=== PATIENT | male | born 1995 | race Two or more races ===

== ENCOUNTER 2020-01-20 16:02 | Emergency (ER) | payer SELFPAY ==
[2020-01-20 16:13] VITALS: BP 101/64; PULSE 96
[2020-01-20] MEDS ORDERED: methylPREDNISolone Sodium Succinate 125 MG/2 ML SDV IM ONE (16:35)
--- NOTE | 2020-01-20 17:11 | CR ---
PROCEDURE INFORMATION: Exam: XR Lumbosacral Spine, 2 or 3 Views Exam date and time: 01/20/2020 4:57 PM Age: 24 years old Clinical indication: Other: Pain, no known trauma--unable to lay down; Additional info: Low back pain TECHNIQUE: Imaging protocol: XR of the lumbosacral spine, 2 or 3 views. COMPARISON: No relevant prior studies available. FINDINGS: Vertebrae: All spinal elements are developmentally normal and intact. Normal alignment. No degenerative spurring or stenosis. Soft tissues: Normal. Gastrointestinal tract: There is an over abundance of mottled soft tissue density stool in the region of the cecum and proximal ascending colon, seen throughout the distal transverse colon and left colon in smaller amounts. There is desiccated stool the level of the rectum. IMPRESSION: 1. Normal lumbar spine. 2. Moderate to severe constipation.
--- NOTE | 2020-01-20 18:10 | EDM.PDOC ---
Scribed by María Elena Aaron 01/20/20 2955 for Mirtha Smith MD ED HPI GENERAL MEDICAL PROBLEM - General Chief Complaint: Back Pain or Injury Stated Complaint: SEVERE LOWER BACK PAIN, UNABLE TO WALK Time Seen by Provider: 01/20/20 16:28 Source of Information: Reports: Patient, RN, RN Notes Reviewed History Limitations: Reports: No Limitations - History of Present Illness INITIAL COMMENTS - FREE TEXT/NARRATIVE: Patient presents to ED with lower back pain that started a week and half ago. It is worse when he is walking. No known injury. It has been getting worse and keeping him up at night. No numbness or tingling in his legs. Onset: Gradual Duration: Getting Worse Location: Reports: Back Quality: Reports: Ache Severity: Severe Improves with: Reports: None Worsens with: Reports: None Associated Symptoms: Reports: No Other Symptoms - Related Data Allergies Allergy/AdvReac Type Severity Reaction Status Date / Time venom-honey bee Allergy Anaphylactic Verified 05/06/14 15:20 [bee venom (honey bee)] Shock Home Meds: Home Meds Hydrocodone/Acetaminophen [Hydrocodon-Acetaminophn 10-325] 1 tab PO Q4H PRN 05/22/14 [History] Past Medical History - Past Health History Medical/Surgical History: Denies Medical/Surgical History Social & Family History - Living Situation & Occupation Living situation: Reports: with Family Occupation: Employed ED ROS GENERAL - Review of Systems Review Of Systems: Comprehensive ROS is negative, except as noted in HPI. ED EXAM,LOWER BACK PAIN/INJURY - Physical Exam Exam: See Below Exam Limited By: No Limitations General Appearance: Alert, WD/WN, No Apparent Distress Eye Exam: Bilateral Eye: EOMI, Normal Inspection, PERRL Ears: Normal External Exam, Normal Canal, Hearing Grossly Normal, Normal TMs Nose: Normal Inspection, Normal Mucosa, No Blood Throat/Mouth: Normal Inspection, Normal Lips, Normal Teeth, Normal Gums, Normal Oropharynx, Normal Voice, No Airway Compromise Head: Atraumatic, Normocephalic Neck: Normal Inspection, Supple, Non-Tender, Full Range of Motion Respiratory/Chest: No Respiratory Distress, Lungs Clear, Normal Breath Sounds, No Accessory Muscle Use, Chest Non-Tender Cardiovascular: Normal Peripheral Pulses, Regular Rate, Rhythm, No Edema, No Gallop, No JVD, No Murmur, No Rub GI/Abdominal: Normal Bowel Sounds, Soft, Non-Tender, No Organomegaly, No Distention, No Abnormal Bruit, No Mass (Male) Exam: Deferred Rectal (Males) Exam: Deferred Extremities: Normal Inspection, Normal Range of Motion, Non-Tender, No Pedal Edema, Normal Capillary Refill Neurological: Alert, Normal Mood/Affect, Normal Dorsiflexion, CN II-XII Intact, Normal Plantar Flexion, Normal Gait, Normal Reflexes, No Motor/Sensory Deficits, Oriented x 3 Psychiatric: Normal Affect, Normal Mood Skin Exam: Warm, Dry, Intact, Normal Color, No Rash Lymphatic: No Adenopathy Course - Vital Signs Last Recorded V/S: Last Vital Signs Temp 98 F 01/20/20 16:12 Pulse 96 01/20/20 16:12 Resp 20 01/20/20 16:12 BP 101/64 01/20/20 16:12 Pulse Ox 98 01/20/20 16:12 - Orders/Labs/Meds Meds: Medications Discontinued Medications Generic Name Dose Route Start Last Admin Trade Name Jasmin PRN Reason Stop Dose Admin Methylprednisolone Sodium Succinate 125 mg 01/20/20 16:35 01/20/20 16:56 Solu-Medrol IM 01/20/20 16:36 125 mg ONETIME ONE Administration Departure - Departure Time of Disposition: 18:02 Disposition: Home, Self-Care 01 Condition: Good Clinical Impression: SI (sacroiliac) joint inflammation Constipation Qualifiers: Constipation type: unspecified constipation type Qualified Code(s): K59.00 - Constipation, unspecified - Discharge Information *PRESCRIPTION DRUG MONITORING PROGRAM REVIEWED*: No *COPY OF PRESCRIPTION DRUG MONITORING REPORT IN PATIENT ROJAS: No Instructions: Constipation, Adult, Mvmv-el-Roof, Sacroiliac Joint Dysfunction Forms: ED Department Discharge Additional Instructions: RX: Prednisone 20mg. Go to [facility] and get Miralax or any laxative or stool softener. Follow up with your clinic provider if not improved in 3-5 days. Sepsis Event Note (ED) - Evaluation Sepsis Screening Result: No Definite Risk - Focused Exam Vital Signs: Vital Signs Temp Pulse Resp BP Pulse Ox 01/20/20 16:12 98 F 96 20 101/64 98 - Assessment/Plan Assessment:: 24 yo with low back pain for 1.5 weeks Plan: reviewed ways to resolve/prevent constipation steroid burst for SI inflammation reviewed reasons to call/return to the ER fu with PCP in 3-5 days I have read and agree with the documentation that has been completed regarding this visit. By signing this record, I attest that the documentation was completed in my physical presence and is an accurate record of the encounter.
== END 2020-01-20 18:24 | disposition home or self-care (01) ==
LOC: DL.ED 16:02
DX: M46.1 Sacroiliitis, not elsewhere classified (principal); K59.00 Constipation, unspecified; Z91.030 Bee allergy status
CPT/HCPCS: 72100; 96372; 99283; J2930

== ENCOUNTER 2020-02-04 22:43 | Emergency (ER) | payer SELFPAY ==
[2020-02-04 23:15] VITALS: BP 124/52; PULSE 103
--- NOTE | 2020-02-04 23:34 | CR ---
PROCEDURE INFORMATION: Exam: XR Left Knee Exam date and time: 02/04/2020 11:13 PM Age: 24 years old Clinical indication: Other: Pain; Additional info: Pain swelling, no injury TECHNIQUE: Imaging protocol: XR Left knee. Views: 1 or 2 views. COMPARISON: No relevant prior studies available. FINDINGS: Bones/joints: Moderate knee joint effusion.There is no evidence of acute fracture. There is no evidence of joint malalignment or dislocation. Soft tissues: No acute soft tissue abnormalities are identified. IMPRESSION: Moderate knee joint effusion
--- NOTE | 2020-02-04 23:35 | CR ---
PROCEDURE INFORMATION: Exam: XR Chest, 2 Views Exam date and time: 02/04/2020 11:09 PM Age: 24 years old Clinical indication: Other: Chest pain; Additional info: Left anterior cp, worse with breathing TECHNIQUE: Imaging protocol: XR of the chest Views: 2 views. COMPARISON: No relevant prior studies available. FINDINGS: Lungs: Unremarkable. No consolidation. Pleural space: Unremarkable. No pleural effusion. No pneumothorax. Heart/Mediastinum: Unremarkable. No cardiomegaly. Bones/joints: Unremarkable. IMPRESSION: No acute findings.
[2020-02-04 23:56] LABS: ANION GAP 12.8 mEq/L (7-13); CHLORIDE,CL 102 mmol/L (98-107); SODIUM,NA 139 mmol/L (136-145)
[2020-02-05] MEDS ORDERED: Azithromycin 250 MG Tab PO ONE (00:01)
[2020-02-05] MEDS ORDERED: cefTRIAXone 1 GM, Lidocaine 1% 2.1 ML IM ONE ×2 (00:01)
--- NOTE | 2020-02-05 01:01 | EDM.PDOC ---
ED HPI GENERAL MEDICAL PROBLEM - General Chief Complaint: Respiratory Problem Stated Complaint: CHEST PAIN/TIGHT, HURTS TO BREATH,SOB Time Seen by Provider: 02/04/20 23:00 Source of Information: Reports: Patient History Limitations: Reports: No Limitations - History of Present Illness INITIAL COMMENTS - FREE TEXT/NARRATIVE: ED with c/o pain with breathing left anterior chest and in back with deep breathing,pain and swelling to left knee. Better tonight than yesterday. Denies injury. No fever or chills. No cough. Treatments [employer]: Reports: NSAIDS Anterior Chest Pain Score (Numeric/FACES): 6 - Related Data Allergies Allergy/AdvReac Type Severity Reaction Status Date / Time venom-honey bee Allergy Anaphylactic Verified 02/04/20 23:17 [bee venom (honey bee)] Shock Home Meds: Home Meds Naproxen 1 tab PO BID 02/04/20 [History] Past Medical History - Past Health History Medical/Surgical History: Denies Medical/Surgical History Genitourinary History: Reports: UTI, Recurrent Psychiatric History: Reports: Anxiety, Panic Attack - Past Surgical History GI Surgical History: Reports: Appendectomy Social & Family History - Family History Family Medical History: Noncontributory - Tobacco Use Smoking Status *Q: Current Every Day Smoker Years of Tobacco use: 4 Packs/Tins Daily: 0.1 - Caffeine Use Caffeine Use: Reports: None - Recreational Drug Use Recreational Drug Use: Yes Drug Use in Last 12 Months: No Recreational Drug Type: Reports: Marijuana/Hashish Other Recreational Drug Type: States he tried to smoke wed for his knee. Recreational Drug Use Frequency: Weekly - Living Situation & Occupation Living situation: Reports: with Family Occupation: Employed ED ROS GENERAL - Review of Systems Review Of Systems: Comprehensive ROS is negative, except as noted in HPI. ED EXAM, GENERAL - Physical Exam Exam: See Below Exam Limited By: No Limitations General Appearance: Alert, Mild Distress Eye Exam: Bilateral Eye: Conjunctival Injection, EOMI, PERRL Ears: Normal External Exam, Hearing Grossly Normal Nose: Normal Inspection Throat/Mouth: Normal Inspection Head: Atraumatic, Normocephalic Neck: Normal Inspection, Full Range of Motion Respiratory/Chest: No Respiratory Distress, Lungs Clear, Normal Breath Sounds, Other (left anterior chest tenderness with palpation reporoducing pain experienced with inspiration) Cardiovascular: Normal Peripheral Pulses, Regular Rate, Rhythm, No Murmur GI/Abdominal: Normal Bowel Sounds, Soft, Non-Tender Back Exam: Normal Inspection, Full Range of Motion Extremities: Normal Inspection, Normal Range of Motion, Joint Swelling (left knee). No: Increased Warmth Neurological: Alert, Oriented, Normal Cognition Psychiatric: Normal Affect, Normal Mood Skin Exam: Warm, Dry, Intact, Normal Color Course - Vital Signs Last Recorded V/S: Last Vital Signs Temp 98.6 F 02/04/20 23:00 Pulse 103 H 02/04/20 23:00 Resp 20 02/04/20 23:00 BP 124/52 L 02/04/20 23:00 Pulse Ox 97 02/04/20 23:00 - Orders/Labs/Meds Orders: Active Orders 24 hr Category Date Time Status CHLAMYDIA AND GONORRHEA BY [facility] Urgent Lab 02/05/20 23:34 Received CULTURE URINE [RM] Stat Lab 02/04/20 23:34 Received Labs: Laboratory Tests 02/04/20 02/04/20 02/04/20 Range/Units 23:32 23:32 23:34 WBC 12.1 H (5.0-10.0) 10^3/uL RBC 4.07 L (4.6-6.2) 10^6/uL Hgb 11.7 L D (14.0-18.0) g/dL Hct 35.8 L (40.0-54.0) % MCV 88.0 (80-100) fL MCH 28.7 (27.0-34.0) pg MCHC 32.7 L (33.0-35.0) g/dL Plt Count 381 (150-450) 10^3/uL Neut % (Auto) 75.9 H (42.2-75.2) % Lymph % (Auto) 10.3 L (20.5-50.1) % White % (Auto) 9.8 H (2-8) % Eos % (Auto) 3.8 H (1.0-3.0) % Baso % (Auto) 0.2 (0.0-1.0) % Sodium 139 (136-145) mmol/L Potassium 3.8 (3.5-5.1) mmol/L Chloride 102 (98-107) mmol/L Carbon Dioxide 28 (21-32) mmol/L Anion Gap 12.8 (7-13) mEq/L BUN 15 (7-18) mg/dL Creatinine 1.01 (0.70-1.30) mg/dL Est Cr Clr Drug Dosing 92.81 mL/min Estimated GFR (MDRD) > 60 BUN/Creatinine Ratio 14.9 (No establ ref range) Glucose 104 H (74-99) mg/dL Calcium 8.5 (8.5-10.1) mg/dL Total Bilirubin 0.3 (0.2-1.0) mg/dL AST 14 L (15-37) U/L ALT 22 (16-63) U/L Alkaline Phosphatase 75 (46-116) U/L C-Reactive Protein 13.4 H (0.0-0.9) mg/dL Total Protein 7.1 (6.4-8.2) g/dL Albumin 2.9 L (3.4-5.0) g/dL Globulin 4.2 Albumin/Globulin Ratio 0.69 Urine Color Yellow (YELLOW) Urine Appearance Slightly cloudy (CLEAR) Urine pH 7.0 (5.0-9.0) Ur Specific [place] 1.020 (1.005-1.030) Urine Protein Trace H (NEGATIVE) Urine Glucose (UA) Negative (NEGATIVE) Urine Ketones Negative (NEGATIVE) Urine Occult Blood Trace-intact H (NEGATIVE) Urine Nitrite Negative (NEGATIVE) Urine Bilirubin Negative (NEGATIVE) Urine Urobilinogen 1.0 (0.2-1.0) mg/dL Ur Leukocyte Esterase Moderate H (NEGATIVE) Urine RBC 0-5 /HPF Urine WBC 50-75 H (0-5/HPF) /HPF Ur Epithelial Cells Rare (NOT SEEN) /HPF Amorphous Sediment Few (NOT SEEN) /HPF Urine Bacteria Few (0-FEW/HPF) /HPF Urine Mucus Few H (NOT SEEN) /LPF Urine Opiates Screen (NEGATIVE) Ur Oxycodone Screen (NEGATIVE) Urine Methadone Screen (NEGATIVE) Ur Barbiturates Screen (NEGATIVE) U Tricyclic Antidepress (NEGATIVE) Ur Phencyclidine Scrn (NEGATIVE) Ur Amphetamine Screen (NEGATIVE) U Methamphetamines Scrn (NEGATIVE) Urine MDMA Screen (NEGATIVE) U Benzodiazepines Scrn (NEGATIVE) Urine Cocaine Screen (NEGATIVE) U Marijuana (THC) Screen (NEGATIVE) 02/04/20 Range/Units 23:34 WBC (5.0-10.0) 10^3/uL RBC (4.6-6.2) 10^6/uL Hgb (14.0-18.0) g/dL Hct (40.0-54.0) % MCV (80-100) fL MCH (27.0-34.0) pg MCHC (33.0-35.0) g/dL Plt Count (150-450) 10^3/uL Neut % (Auto) (42.2-75.2) % Lymph % (Auto) (20.5-50.1) % White % (Auto) (2-8) % Eos % (Auto) (1.0-3.0) % Baso % (Auto) (0.0-1.0) % Sodium (136-145) mmol/L Potassium (3.5-5.1) mmol/L Chloride (98-107) mmol/L Carbon Dioxide (21-32) mmol/L Anion Gap (7-13) mEq/L BUN (7-18) mg/dL Creatinine (0.70-1.30) mg/dL Est Cr Clr Drug Dosing mL/min Estimated GFR (MDRD) BUN/Creatinine Ratio (No establ ref range) Glucose (74-99) mg/dL Calcium (8.5-10.1) mg/dL Total Bilirubin (0.2-1.0) mg/dL AST (15-37) U/L ALT (16-63) U/L Alkaline Phosphatase (46-116) U/L C-Reactive Protein (0.0-0.9) mg/dL Total Protein (6.4-8.2) g/dL Albumin (3.4-5.0) g/dL Globulin Albumin/Globulin Ratio Urine Color (YELLOW) Urine Appearance (CLEAR) Urine pH (5.0-9.0) Ur Specific [place] (1.005-1.030) Urine Protein (NEGATIVE) Urine Glucose (UA) (NEGATIVE) Urine Ketones (NEGATIVE) Urine Occult Blood (NEGATIVE) Urine Nitrite (NEGATIVE) Urine Bilirubin (NEGATIVE) Urine Urobilinogen (0.2-1.0) mg/dL Ur Leukocyte Esterase (NEGATIVE) Urine RBC /HPF Urine WBC (0-5/HPF) /HPF Ur Epithelial Cells (NOT SEEN) /HPF Amorphous Sediment (NOT SEEN) /HPF Urine Bacteria (0-FEW/HPF) /HPF Urine Mucus (NOT SEEN) /LPF Urine Opiates Screen Negative (NEGATIVE) Ur Oxycodone Screen Negative (NEGATIVE) Urine Methadone Screen Negative (NEGATIVE) Ur Barbiturates Screen Negative (NEGATIVE) U Tricyclic Antidepress Negative (NEGATIVE) Ur Phencyclidine Scrn Negative (NEGATIVE) Ur Amphetamine Screen Positive H (NEGATIVE) U Methamphetamines Scrn Negative (NEGATIVE) Urine MDMA Screen Negative (NEGATIVE) U Benzodiazepines Scrn Negative (NEGATIVE) Urine Cocaine Screen Negative (NEGATIVE) U Marijuana (THC) Screen Positive H (NEGATIVE) Meds: Medications Discontinued Medications Generic Name Dose Route Start Last Admin Trade Name Freq PRN Reason Stop Dose Admin Azithromycin 1,000 mg 02/05/20 00:01 02/05/20 00:10 Zithromax PO 02/05/20 00:02 1,000 mg ONETIME ONE Administration Ceftriaxone Sodium 1 gm/ 0 gm 02/05/20 00:01 02/05/20 00:10 Lidocaine HCl 2.1 ml IM 02/05/20 00:02 2.1 inj ONETIME ONE Administration - Re-Assessments/Exams Free Text/Narrative Re-Assessment/Exam: admits some increased frequency and burining with urination last week none at pr esent. No hx STD. Departure - Departure Time of Disposition: 00:49 Disposition: Home, Self-Care 01 Condition: Good Clinical Impression: Knee effusion, left, Costochondral chest pain UTI (urinary tract infection) Qualifiers: Urinary tract infection type: acute cystitis Hematuria presence: without hematuria Qualified Code(s): N30.00 - Acute cystitis without hematuria - Discharge Information *PRESCRIPTION DRUG MONITORING PROGRAM REVIEWED*: No *COPY OF PRESCRIPTION DRUG MONITORING REPORT IN PATIENT ROJAS: No Instructions: Knee Effusion, [id number], Chest Wall Pain, [id number], Urinary Tract Infection, Adult, [id number] Referrals: PCP,None [Primary Care Provider] - Forms: ED Department Discharge Additional Instructions: increase fluids tylenol 650mg every 4 hours as needed for discomfort, alternating with ibuprofen 600mg clindamycin 300mg 3 times daily follow up in clinic early week for recheck ice to knee Sepsis Event Note (ED) - Evaluation Sepsis Screening Result: No Definite Risk - Focused Exam Vital Signs: Vital Signs Temp Pulse Resp BP Pulse Ox 02/04/20 23:00 98.6 F 103 H 20 124/52 L 97 - My Orders Last 24 Hours: My Active Orders 02/04/20 23:34 CULTURE URINE [RM] Stat 02/05/20 23:34 CHLAMYDIA AND GONORRHEA BY [facility] Urgent - Assessment/Plan Last 24 Hours: My Active Orders 02/04/20 23:34 CULTURE URINE [RM] Stat 02/05/20 23:34 CHLAMYDIA AND GONORRHEA BY [facility] Urgent
[2020-02-06 11:47] LABS: C.TRACHOMATIS BY TMA Negative (Negative); N.GONORRHOEAE BY TMA Positive (Negative)
== END 2020-02-05 01:00 | disposition home or self-care (01) ==
LOC: DL.ED 22:43
DX: R07.1 Chest pain on breathing (principal); M25.462 Effusion, left knee; N30.00 Acute cystitis without hematuria; F17.210 Nicotine dependence, cigarettes, uncomplicated; Z91.030 Bee allergy status
CPT/HCPCS: 36415; 71046; 73560; 80053; 80305; 81001; 85025; 86140; 87086; 87491; 87591; 96372; 99284; 99285; A9270; J0696; J2001

== ENCOUNTER 2020-09-10 14:38 | Emergency (ER) | payer SELFPAY ==
[2020-09-10 14:55] VITALS: BP 133/77; PULSE 98
[2020-09-10] MEDS ORDERED: Silver Sulfadiazine 1% Crm 50 GM Tube TOP ONE (15:35)
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
== END 2020-09-10 15:56 | disposition home or self-care (01) ==
LOC: DL.ED 14:38
DX: T65.891A Toxic effect of other specified substances, accidental (unintentional), initial encounter (principal); T25.512A Corrosion of first degree of left ankle, initial encounter; T25.511A Corrosion of first degree of right ankle, initial encounter; L03.116 Cellulitis of left lower limb; L03.115 Cellulitis of right lower limb; Z91.030 Bee allergy status; Z72.0 Tobacco use
CPT/HCPCS: 16020; 99283; 99283-25; A9270-GY

== ENCOUNTER 2020-10-06 13:20 | Emergency (ER) | payer MEDICAID, OTHER ==
[2020-10-06 13:51] VITALS: BP 119/76; PULSE 100
[2020-10-06 14:20] LABS: ANION GAP 14.2 mEq/L (7-13); CHLORIDE,CL 105 mmol/L (98-107); SODIUM,NA 142 mmol/L (136-145)
[2020-10-06 14:25] LABS: CORONAVIRUS COVID-19 NAA NEGATIVE (NEGATIVE)
--- NOTE | 2020-10-06 16:29 | CR ---
PROCEDURE INFORMATION: Exam: XR Chest Exam date and time: 10/06/2020 3:03 PM Age: 25 years old Clinical indication: Other: Right anterior chest pain TECHNIQUE: Imaging protocol: XR of the chest. Views: 2 views. COMPARISON: CR Chest 2V 02/04/2020 11:09 PM FINDINGS: Lungs: Unremarkable. No consolidation. Pleural spaces: Unremarkable. No pleural effusion. No pneumothorax. Heart/Mediastinum: Unremarkable. No cardiomegaly. Bones/joints: Unremarkable. IMPRESSION: No acute findings.
--- NOTE | 2020-10-06 16:38 | EDM.PDOC ---
Scribed by María Elena Aaron 10/06/20 0543 for Colleen Prather NP ED HPI GENERAL MEDICAL PROBLEM - General Chief Complaint: Respiratory Problem Stated Complaint: [id number] RIGHT LUNG PAIN Time Seen by Provider: 10/06/20 14:18 Source of Information: Reports: Patient, RN, RN Notes Reviewed - History of Present Illness INITIAL COMMENTS - FREE TEXT/NARRATIVE: Patient to ER with complaint of "lung pain". It began yesterday. States pain to the right lung anterior chest with movement, coughing, breathing and laughing. Denies having had COVID. He was last tested 1 month ago--negative at that time. No vaccinations. Patient unsure if he got them. He states he quit smoking x1 month ago and also quit marijuana 1 month ago. No cough, fever, chills, nausea, vomiting, and diarrhea. Denies any past medical hihstory. He had listed weights last night and stopped right away because of pain. He rates the pain 6/0 and sharp. Onset Date: 10/05/20 Duration: Getting Worse Location: Reports: Chest Quality: Reports: Ache Severity: Moderate Improves with: Reports: None Worsens with: Reports: None Right Chest Pain Score (Numeric/FACES): 4 - Related Data Allergies Allergy/AdvReac Type Severity Reaction Status Date / Time venom-honey bee Allergy Anaphylactic Verified 10/06/20 13:48 [bee venom (honey bee)] Shock Home Meds: Home Meds . [No Known Home Meds] 10/06/20 [History] Past Medical History - Past Health History Medical/Surgical History: Denies Medical/Surgical History HEENT History: Reports: None Cardiovascular History: Reports: None Respiratory History: Reports: None Genitourinary History: Reports: UTI, Recurrent Musculoskeletal History: Reports: None Neurological History: Reports: None Psychiatric History: Reports: Anxiety, Panic Attack Endocrine/Metabolic History: Reports: None Hematologic History: Reports: None Immunologic History: Reports: None Oncologic (Cancer) History: Reports: None Dermatologic History: Reports: None - Infectious Disease History Infectious Disease History: Reports: None - Past Surgical History Head Surgeries/Procedures: Reports: None GI Surgical History: Reports: Appendectomy Social & Family History - Family History Family Medical History: No Pertinent Family History - Tobacco Use Tobacco Use Status *Q: Former Tobacco User Used Tobacco, but Quit: Yes Month/Year Tobacco Last Used: 08/2020 - Caffeine Use Caffeine Use: Reports: Coffee, Soda - Recreational Drug Use Recreational Drug Use: Yes Drug Use in Last 12 Months: Yes Recreational Drug Type: Reports: Marijuana/Hashish Recreational Drug Use Frequency: Daily - Living Situation & Occupation Living situation: Reports: with Family Occupation: Employed ED ROS GENERAL - Review of Systems Review Of Systems: Comprehensive ROS is negative, except as noted in HPI. ED EXAM, GENERAL - Physical Exam Exam: See Below Exam Limited By: No Limitations General Appearance: Alert, WD/WN, No Apparent Distress Eye Exam: Bilateral Eye: EOMI, Normal Inspection, PERRL Ears: Normal External Exam, Normal Canal, Hearing Grossly Normal, Normal TMs Nose: Normal Inspection, Normal Mucosa, No Blood Throat/Mouth: Normal Inspection, Normal Lips, Normal Teeth, Normal Gums, Normal Oropharynx, Normal Voice, No Airway Compromise Head: Atraumatic, Normocephalic Neck: Normal Inspection, Supple, Non-Tender, Full Range of Motion Respiratory/Chest: Other (tender right anterior) Cardiovascular: Normal Peripheral Pulses, Regular Rate, Rhythm, No Edema, No Gallop, No JVD, No Murmur, No Rub GI/Abdominal: Normal Bowel Sounds, Soft, Non-Tender, No Organomegaly, No Distention, No Abnormal Bruit, No Mass (Male) Exam: Deferred Rectal (Males) Exam: Deferred Back Exam: Other (right anterior chest pain) Extremities: Normal Inspection, Normal Range of Motion, Non-Tender, Normal Capillary Refill, No Pedal Edema Neurological: Alert, Oriented, CN II-XII Intact, Normal Cognition, Normal Gait, Normal Reflexes, No Motor/Sensory Deficits Psychiatric: Normal Affect, Normal Mood Skin Exam: Warm, Dry, Intact, Normal Color, No Rash Lymphatic: No Adenopathy Course - Vital Signs Last Recorded V/S: Last Vital Signs Temp 96.1 F L 10/06/20 13:49 Pulse 100 10/06/20 13:49 Resp 20 10/06/20 13:49 BP 119/76 10/06/20 13:49 Pulse Ox 99 10/06/20 13:49 - Orders/Labs/Meds Labs: Laboratory Tests 10/06/20 10/06/20 10/06/20 Range/Units 13:36 13:49 13:49 WBC (5.0-10.0) 10^3/uL RBC (4.6-6.2) 10^6/uL Hgb (14.0-18.0) g/dL Hct (40.0-54.0) % MCV (80-100) fL MCH (27.0-34.0) pg MCHC (33.0-35.0) g/dL Plt Count (150-450) 10^3/uL Neut % (Auto) (42.2-75.2) % Lymph % (Auto) (20.5-50.1) % [place] % (Auto) (2-8) % Eos % (Auto) (1.0-3.0) % Baso % (Auto) (0.0-1.0) % PT (9.0-12.0) SEC INR (0.9-1.2) D-Dimer, Quantitative (0-400) ng/mL Sodium (136-145) mmol/L Potassium (3.5-5.1) mmol/L Chloride (98-107) mmol/L Carbon Dioxide (21-32) mmol/L Anion Gap (7-13) mEq/L BUN (7-18) mg/dL Creatinine (0.70-1.30) mg/dL Est Cr Clr Drug Dosing mL/min Estimated GFR (MDRD) BUN/Creatinine Ratio (No establ ref range) Glucose (70-99) mg/dL Calcium (8.5-10.1) mg/dL Total Bilirubin (0.2-1.0) mg/dL AST (15-37) U/L ALT (16-63) U/L Alkaline Phosphatase (46-116) U/L Total Protein (6.4-8.2) g/dL Albumin (3.4-5.0) g/dL Globulin Albumin/Globulin Ratio Urine Color Yellow (YELLOW) Urine Appearance Clear (CLEAR) Urine pH 5.5 (5.0-9.0) Ur Specific Whitt >= 1.030 (1.005-1.030) Urine Protein Negative (NEGATIVE) Urine Glucose (UA) Negative (NEGATIVE) Urine Ketones Negative (NEGATIVE) Urine Occult Blood Negative (NEGATIVE) Urine Nitrite Negative (NEGATIVE) Urine Bilirubin Negative (NEGATIVE) Urine Urobilinogen 0.2 (0.2-1.0) mg/dL Ur Leukocyte Esterase Negative (NEGATIVE) Urine Opiates Screen Negative (NEGATIVE) Ur Oxycodone Screen Negative (NEGATIVE) Urine Methadone Screen Negative (NEGATIVE) Ur Barbiturates Screen Negative (NEGATIVE) U Tricyclic Antidepress Negative (NEGATIVE) Ur Phencyclidine Scrn Negative (NEGATIVE) Ur Amphetamine Screen Negative (NEGATIVE) U Methamphetamines Scrn Negative (NEGATIVE) Urine MDMA Screen Negative (NEGATIVE) U Benzodiazepines Scrn Negative (NEGATIVE) Urine Cocaine Screen Negative (NEGATIVE) U Marijuana (THC) Screen Negative (NEGATIVE) Ethyl Alcohol (0) mg/dL Influenza Type A RNA Negative (NEGATIVE) Influenza Type B RNA Negative (NEGATIVE) SARS-CoV-2 RNA (ARIADNE) Negative (NEGATIVE) 10/06/20 10/06/20 10/06/20 Range/Units 13:53 13:53 13:53 WBC 5.4 (5.0-10.0) 10^3/uL RBC 4.92 (4.6-6.2) 10^6/uL Hgb 14.2 D (14.0-18.0) g/dL Hct 43.4 (40.0-54.0) % MCV 88.2 (80-100) fL MCH 28.9 (27.0-34.0) pg MCHC 32.7 L (33.0-35.0) g/dL Plt Count 230 D (150-450) 10^3/uL Neut % (Auto) 74.0 (42.2-75.2) % Lymph % (Auto) 16.0 L (20.5-50.1) % [place] % (Auto) 8.1 H (2-8) % Eos % (Auto) 1.5 (1.0-3.0) % Baso % (Auto) 0.4 (0.0-1.0) % PT 10.4 (9.0-12.0) SEC INR 1.0 (0.9-1.2) D-Dimer, Quantitative 252 (0-400) ng/mL Sodium 142 (136-145) mmol/L Potassium 4.2 (3.5-5.1) mmol/L Chloride 105 (98-107) mmol/L Carbon Dioxide 27 (21-32) mmol/L Anion Gap 14.2 H (7-13) mEq/L BUN 12 (7-18) mg/dL Creatinine 1.31 H (0.70-1.30) mg/dL Est Cr Clr Drug Dosing 73.68 mL/min Estimated GFR (MDRD) > 60 BUN/Creatinine Ratio 9.2 (No establ ref range) Glucose 97 (70-99) mg/dL Calcium 8.5 (8.5-10.1) mg/dL Total Bilirubin 0.4 (0.2-1.0) mg/dL AST 30 (15-37) U/L ALT 31 (16-63) U/L Alkaline Phosphatase 85 (46-116) U/L Total Protein 7.3 (6.4-8.2) g/dL Albumin 3.6 (3.4-5.0) g/dL Globulin 3.7 Albumin/Globulin Ratio 1.0 Urine Color (YELLOW) Urine Appearance (CLEAR) Urine pH (5.0-9.0) Ur Specific Whitt (1.005-1.030) Urine Protein (NEGATIVE) Urine Glucose (UA) (NEGATIVE) Urine Ketones (NEGATIVE) Urine Occult Blood (NEGATIVE) Urine Nitrite (NEGATIVE) Urine Bilirubin (NEGATIVE) Urine Urobilinogen (0.2-1.0) mg/dL Ur Leukocyte Esterase (NEGATIVE) Urine Opiates Screen (NEGATIVE) Ur Oxycodone Screen (NEGATIVE) Urine Methadone Screen (NEGATIVE) Ur Barbiturates Screen (NEGATIVE) U Tricyclic Antidepress (NEGATIVE) Ur Phencyclidine Scrn (NEGATIVE) Ur Amphetamine Screen (NEGATIVE) U Methamphetamines Scrn (NEGATIVE) Urine MDMA Screen (NEGATIVE) U Benzodiazepines Scrn (NEGATIVE) Urine Cocaine Screen (NEGATIVE) U Marijuana (THC) Screen (NEGATIVE) Ethyl Alcohol < 3 (0) mg/dL Influenza Type A RNA (NEGATIVE) Influenza Type B RNA (NEGATIVE) SARS-CoV-2 RNA (ARIADNE) (NEGATIVE) - Radiology Interpretation Free Text/Narrative:: Chest xray: PROCEDURE INFORMATION: Exam: XR Chest Exam date and time: 10/06/2020 3:03 PM Age: 25 years old Clinical indication: Other: Right anterior chest pain TECHNIQUE: Imaging protocol: XR of the chest. Views: 2 views. COMPARISON: CR Chest 2V 02/04/2020 11:09 PM FINDINGS: Lungs: Unremarkable. No consolidation. Pleural spaces: Unremarkable. No pleural effusion. No pneumothorax. Heart/Mediastinum: Unremarkable. No cardiomegaly. Bones/joints: Unremarkable. IMPRESSION: No acute findings. Thank you for allowing us to participate in the care of your patient. Dictated and Authenticated by: Ayla Ramirez MD 10/06/2020 4:29 PM Central Time ([place] & [place]) See rad report Departure - Departure Time of Disposition: 16:34 Disposition: Home, Self-Care 01 Condition: Good Clinical Impression: Pleurisy Muscle strain of chest wall Qualifiers: Encounter type: initial encounter Qualified Code(s): S29.011A - Strain of muscle and tendon of front wall of thorax, initial encounter - Discharge Information *PRESCRIPTION DRUG MONITORING PROGRAM REVIEWED*: No *COPY OF PRESCRIPTION DRUG MONITORING REPORT IN PATIENT ROJAS: No Instructions: Muscle Strain, [id number], Pleurisy, [id number] Forms: ED Department Discharge Additional Instructions: Alternate Tylenol and ibuprofen for pain, ibuprofen being very important to help with the inflammation, use as directed May ice and alternate with heat to the anterior chest wall where the pain is present as tolerated Cough and deep breathe frequently to prevent pneumonia Follow-up with your primary care provider in the clinic if no improvement Return to the ER with any worsening of problems Sepsis Event Note (ED) - Evaluation Sepsis Screening Result: No Definite Risk - Focused Exam Vital Signs: Vital Signs Temp Pulse Resp BP Pulse Ox 10/06/20 13:49 96.1 F L 100 20 119/76 99 I have read and agree with the documentation that has been completed regarding this visit. By signing this record, I attest that the documentation was completed in my physical presence and is an accurate record of the encounter.
== END 2020-10-06 16:45 | disposition home or self-care (01) ==
LOC: DL.ED 13:20
DX: S29.011A Strain of muscle and tendon of front wall of thorax, initial encounter (principal); R09.1 Pleurisy; Z20.822 Contact with and (suspected) exposure to COVID-19; Z91.030 Bee allergy status; Z87.891 Personal history of nicotine dependence; X58.XXXA Exposure to other specified factors, initial encounter
CPT/HCPCS: 0240U; 36415; 71046; 80053; 80305-QW; 80307; 81003; 85025; 85379; 85610; 99283; 99284-25

== ENCOUNTER 2021-11-16 17:20 | Emergency (ER) | payer SELFPAY ==
[2021-11-16 17:40] VITALS: BP 108/69; PULSE 88
== END 2021-11-16 18:22 | disposition home or self-care (01) ==
LOC: DL.ED 17:20
DX: S20.362A Insect bite (nonvenomous) of left front wall of thorax, initial encounter (principal); L08.9 Local infection of the skin and subcutaneous tissue, unspecified; Z91.030 Bee allergy status; Z90.49 Acquired absence of other specified parts of digestive tract; Z87.891 Personal history of nicotine dependence; W57.XXXA Bitten or stung by nonvenomous insect and other nonvenomous arthropods, initial encounter
CPT/HCPCS: 99281; 99283

== ENCOUNTER 2023-11-06 11:11 | Emergency (ER) | payer MEDICAID, OTHER ==
[2023-11-06 11:54] LABS: BASOPHILS PERCENT AUTO 0.3 % (0.0-1.0); EOSINOPHILS PERCENT AUTO 4.6 % (1.0-3.0); HEMATOCRIT 42.9 % (40.0-54.0); HEMOGLOBIN 14.5 g/dL (14.0-18.0); LYMPHOCYTES PERCENT AUTO 29.6 % (20.5-50.1); MEAN CORPUSCULAR HEMOGLOBIN 29.1 pg (27.0-34.0); MEAN CORPUSCULAR HGB CONC 33.8 g/dL (33.0-35.0); MEAN CORPUSCULAR VOLUME 86.1 fL (80-100); MONOCYTES PERCENT AUTO 10.4 % (2-8); NEUTROPHILS PERCENT AUTO 55.1 % (42.2-75.2); PLATELET COUNT,PLT 215 10^3/uL (150-450); RED BLOOD CELL COUNT 4.98 10^6/uL (4.6-6.2); WHITE BLOOD CELL COUNT,WBC 6.7 10^3/uL (5.0-10.0)
[2023-11-06] MEDS: Iopamidol 612 MG/ML 100 ML Bottle IVPUSH ONE (12:00)
[2023-11-06 12:11] LABS: A/G RATIO 1.2; ALBUMIN 4.2 g/dL (3.4-5.0); BILIRUBIN TOTAL 0.5 mg/dL (0.2-1.0); BUN/CREATININE RATIO 13.1 (No establ ref range); C-REACTIVE PROTEIN 0.97 ng/dL (<=0.50); CREATININE 0.99 mg/dL (0.70-1.30); EST CRCL DRUG DOSING (CG) 101.36 mL/min; MAGNESIUM 1.9 mg/dL (1.8-2.4); PROTEIN TOTAL,TP 7.6 g/dL (6.4-8.2)
[2023-11-06 12:14] LABS: LACTIC ACID 0.9 mmol/L (0.4-2.0)
[2023-11-06 12:15] VITALS: BP 126/88; PULSE 81
[2023-11-06] MEDS: Clindamycin in 0.9 % Sod Chlor 900 MG in Premix Bag 1 BAG IV ONE (13:15)
[2023-11-06] MEDS: Take Home: Clindamycin HCl 150 MG, 12 Cap Pack PO ONE (13:53)
== END 2023-11-06 13:54 | disposition home or self-care (01) ==
LOC: DL.ED 11:11
DX: L03.211 Cellulitis of face (principal); Z90.49 Acquired absence of other specified parts of digestive tract; Z91.030 Bee allergy status
CPT/HCPCS: 36415; 70487; 80053; 83605; 83735; 85025; 86140; 96365; 99284; A9270; J3490; Q9967

== ENCOUNTER 2024-09-26 21:30 | Emergency (ER) | payer SELFPAY ==
[2024-09-26 22:28] VITALS: BP 127/81; PULSE 75
[2024-09-26] MEDS ORDERED: Lidocaine 1% 5 ML VIAL ONE (22:39)
[2024-09-26] MEDS: cefTRIAXone 1 GM Vial IM ONE (22:43)
== END 2024-09-26 22:46 | disposition home or self-care (01) ==
LOC: DL.ED 21:30
DX: L03.211 Cellulitis of face (principal); Z90.49 Acquired absence of other specified parts of digestive tract; Z91.030 Bee allergy status
CPT/HCPCS: 96372; 99283; J0696

== ENCOUNTER 2024-10-15 21:50 | Emergency (ER) | payer SELFPAY ==
[2024-10-15 22:15] VITALS: BP 112/63; PULSE 95
[2024-10-15] MEDS: Amoxicillin/Clavulanate K 875-125 MG Tab PO ONE (22:18)
== END 2024-10-15 22:35 | disposition home or self-care (01) ==
LOC: DL.ED 21:50
DX: S81.851A Open bite, right lower leg, initial encounter (principal); Z91.030 Bee allergy status; W54.0XXA Bitten by dog, initial encounter
CPT/HCPCS: 99282; 99283; A9270